=== PATIENT | male | born 1980 | race Caucasian/White ===

== ENCOUNTER 2018-10-22 07:14 | Day surgery (SDC) | payer OTHER ==
[~2018-10-22] VITALS: Ht 165.1 cm; Wt 90.7 kg
[2018-10-22 07:36] VITALS: BP 139/95
[2018-10-22 11:55] VITALS: BP 117/74
== END 2018-10-22 11:25 | disposition home or self-care (01) ==
LOC: DS 07:14 → GI 08:30 → OR 08:30 → DS 11:25
DX: K21.0 Gastro-esophageal reflux disease with esophagitis (principal); F12.90 Cannabis use, unspecified, uncomplicated; Z79.899 Other long term (current) drug therapy; F32.9 Major depressive disorder, single episode, unspecified; Z98.890 Other specified postprocedural states
CPT/HCPCS: 43235; J1200; J1610; J2250; J2310; J3010; J3490